=== PATIENT | female | born 1985 | race Caucasian/White ===

== ENCOUNTER → 2016-03-08 | Outpatient (CLI) | payer OTHER ==
--- NOTE | 2016-03-11 08:36 | USB ---
Reason for exam: clinical finding. Indicated problem(s): lump or thickening in the left breast. Physical Findings: Nurse Summary: Patient complains of left breast palpable 2 weeks ago, does not feel now (nurse ts). US Breast LT Left breast ultrasound including all four quadrants, the retroareolar region and axilla demonstrates no cystic or solid lesion seen. Mammogram was deferred as the patient's status was unknown. No solid or cystic lesion is seen with particular attention to the patients upper inner quadrant palpable site. These results were verbally communicated with the patient and result sheet given to the patient on 03/08/16. ASSESSMENT: Negative, BI-RAD 1 RECOMMENDATION: Routine screening mammogram of both breasts at age 42. (Unless clinical indication to start sooner). Manage on a clinical basis with regard to any suspicious palpable areas.
== END | disposition home or self-care (01) ==
LOC: RADMAMWWP 13:34
PROVIDERS: ATTEND Internal Medicine
DX: N63 Unspecified lump in breast (principal)

== ENCOUNTER → 2016-05-07 | Outpatient (CLI) | payer OTHER ==
[2016-05-07 13:15] LABS: CH 30.7; CHCM 33.4; HCT 39.7 % (34.0-46.0); HDW 2.45; HGB 13.1 gm/dL (11.4-16.0); MCH 30.5 pg (25.0-35.0); MCHC 33.1 g/dL (31.0-37.0); MCV 92.3 fL (80.0-100.0); Mean Platelet Volume 7.7; WBC 6.1 k/uL (3.8-10.6)
[2016-05-07 13:21] LABS: Glucose 76 mg/dL (74-99); Non-African American GFR(MDRD) >60 (>60 ml/min/1.73 sqM)
--- NOTE | 2016-05-07 13:41 | US ---
EXAMINATION TYPE: US OB <= 14 wk fetus DATE OF EXAM: 05/07/2016 12:46 PM COMPARISON: NONE CLINICAL HISTORY: Z36 Comfirm Dates. EXAM PERFORMED: Transabdominal (TA) GESTATIONAL AGE / DATING Physician Established: not yet established Dates by LMP: (14 weeks/3 days) EDC: 11/02/16 Dates by First Scan: 1st scan today Dates by Current Scan for: (14 weeks/4 days) EDC: 11/01/16 Date of LMP: 01/26/17 Beta HcG (if available): not available TECHNIQUE: Transabdominal (TA) SURVEY IUP: Single PLACENTA: Anterior PREVIA: Low Lying JENNIFER: 10.6 cm CERVICAL LENGTH (transabdominal: norm > 3.0cm): 3.0 cm BIOMETRY PRESENTATION: Variable BPD: 2.5 cm 14 weeks / 3 days HC: 9.5 cm 14 weeks / 2 days AC: 7.9 cm 14 weeks / 2 days FL: 1.3 cm 14 weeks / 0 days ESTIMATED WEIGHT IN GRAMS: 90 grams ESTIMATED WEIGHT IN LBS/OZS: 0 lbs. 3 oz. WEIGHT PERCENTAGE BASED ON ESTABLISHED DATES: 17% HC/AC: 1.2 FL/AC: 17.0 HEART RATE: 170 bpm RHYTHM: Normal Normal IUP IMPRESSION: Viable 14 weeks 4 days with an EDC of 11/01/2016 Low-lying placenta follow-up post 20 weeks could be obtained for further evaluation as clinically war ranted
[2016-05-07 13:53] LABS: Hepatitis B Surface Ag Index 0.08
== END | disposition home or self-care (01) ==
LOC: RADUSWWP 12:18
PROVIDERS: ATTEND Obstetrics & Gynecology
DX: Z36 Encounter for antenatal screening of mother (principal); O44.42 Low lying placenta NOS or without hemorrhage, second trimester; Z3A.14 14 weeks gestation of pregnancy
CPT/HCPCS: 36415; 76805; 82565; 82947; 85027; 86762; 86780; 86850; 86900; 86901; 87340

== ENCOUNTER 2016-07-01 21:55 | Outpatient (CLI) | payer OTHER ==
[2016-07-01 22:59] LABS: Appearance,Urine Cloudy (Clear); Bacteria,Urine Many /hpf; Bilirubin,Urine Negative (Negative); Glucose,Urine (UA) Negative (Negative); Ketones,Urine Negative (Negative); Leukocyte Esterase,Urine Negative (Negative); Mucus,Urine Rare /hpf; Nitrite,Urine Negative (Negative); PH, Urine 7.5 (5.0-8.0); Particle Count 12815; Protein,Urine Negative (Negative); RBC,Urine 1 /hpf (0-5); Specific Gravity,Urine 1.005 (1.001-1.035); Squamous Epithelial Cell,Urine 2 /hpf (0-4); UA Billing (MACRO vs. MICRO) MICRO; Urobilinogen,Urine <2.0 mg/dL (<2.0); WBC,Urine 3 /hpf (0-5)
== END 2016-07-01 23:59 | disposition home or self-care (01) ==
LOC: FBPOP 21:55
PROVIDERS: ATTEND Obstetrics & Gynecology
DX: O26.92 Pregnancy related conditions, unspecified, second trimester (principal); Z3A.22 22 weeks gestation of pregnancy
CPT/HCPCS: 81001; 82731; 99213

== ENCOUNTER → 2016-08-14 | Outpatient (CLI) | payer OTHER ==
[2016-08-14 09:51] LABS: CHCM 32.9; HCT 32.2 % (34.0-46.0); HDW 2.82; HGB 10.9 gm/dL (11.4-16.0); MCH 31.1 pg (25.0-35.0); MCHC 33.9 g/dL (31.0-37.0); MCV 91.6 fL (80.0-100.0); RBC 3.51 m/uL (3.80-5.40); RDW 13.2 % (11.5-15.5); WBC 9.5 k/uL (3.8-10.6)
== END | disposition home or self-care (01) ==
LOC: LABWHC1 08:11
PROVIDERS: ATTEND Obstetrics & Gynecology
DX: Z34.82 Encounter for supervision of other normal pregnancy, second trimester (principal); Z3A.00 Weeks of gestation of pregnancy not specified
CPT/HCPCS: 36415; 82950; 85027

== ENCOUNTER 2016-10-30 06:15 | Inpatient (IN) | payer OTHER ==
[2016-11-07] MEDS ORDERED: METHYLERGONOVINE 0.2 MG/ML 1 ML AMP IM PRN (06:09)
[2016-11-07] MEDS ORDERED: OXYTOCIN 20 UNITS/1000 ML NS 1,000 ML IV SCH ×2 (06:09→12:46)
[2016-11-07] MEDS ORDERED: CARBOPROST TROMETHAMINE 250 MCG/ML 1 ML AMP IM PRN (06:09)
[2016-11-07] MEDS ORDERED: OXYTOCIN 10 UNIT/ML 1 ML VIAL IM PRN (06:09)
[2016-11-07] MEDS ORDERED: LIDOCAINE 1% (PF) 10 MG/ML (30 ML SDV) SQ PRN (06:09)
[2016-11-07] MEDS ORDERED: TERBUTALINE 1 MG/ML VIAL SQ PRN (06:09)
--- NOTE | 2016-11-07 06:15 | P.HPOB ---
History of Present Illness H&P Date: 11/07/16 Chief Complaint: Postdates induction. This patient is a pleasant 30-year-old 4 para 3 female estimated date of confinement 11/02/2016 estimated gestational age 40-5/7 weeks gestation who presents to labor and delivery for requested induction of labor. Patient's care has been uncomplicated. Review of Systems Constitutional: Denies chills, Denies fever Ears, nose, mouth and throat: Denies headache, Denies sore throat Cardiovascular: Denies chest pain, Denies shortness of breath Respiratory: Denies cough Gastrointestinal: Reports heartburn Genitourinary: Reports Menstruation: Reports amenorrhea Musculoskeletal: Denies myalgias Neurological: Denies numbness, Denies weakness Past Medical History Past Medical History: No Reported History History of Any Multi-Drug Resistant Organisms: None Reported Past Surgical History: Adenoidectomy, Tonsillectomy Past Anesthesia/Blood Transfusion Reactions: No Reported Reaction Past Psychological History: No Psychological Hx Reported Smoking Status: Never smoker Past Alcohol Use History: None Reported Past Drug Use History: None Reported Medications and Allergies Home Medications Medication Instructions Recorded Confirmed Type 114/Iron A-G/Folate 1 1 each PO DAILY 07/01/16 11/07/16 History [Prenate Elite Tablet] Allergies Allergy/AdvReac Type Severity Reaction Status Date / Time amoxicillin [From Augmentin] Allergy Rash/Hives Verified 11/07/16 06:09 clavulanic acid Allergy Rash/Hives Verified 11/07/16 06:09 [From Augmentin] Exam - Vital Signs Vital signs: Intake and Output 11/06/16 11/06/16 11/07/16 14:59 22:59 06:59 Other: Weight 97.522 kg Patient Weight 11/07/16 06:59 Weight 97.522 kg - OBG Physical Exam Abdomen: bowel sounds normal, no diffuse tenderness, no bruit present, no guarding noted, no hepatomegaly, no splenomegaly, no mass Vagina: normal moisture, no discharge Cervix: Cervix in the office is 2 cm dilated and uneffaced. Uterus: enlarged (Fundal height is 40 cm.) Results blood work shows she is AB+, rubella immune, RPR nonreactive, hepatitis B negative, ultrasounds have been normal, group B strep was negative, Glucola was normal. Assessment and Plan (1) Post-dates Narrative/Plan: This is a pleasant 30-year-old 4 para 3 female who is presenting for requested induction of labor. Plan is induction of labor and anticipate vaginal delivery. Status: Acute
[2016-11-07] MEDS: LACTATED RINGERS 1,000 ML IV SCH ×2 (06:21→10:11)
[2016-11-07 06:26] LABS: Basophils % (A) 0 %; CH 28.6; CHCM 32.6; Eosinophils # (A) 0.1 k/uL (0-0.7); Eosinophils % (A) 1 %; HCT 34.1 % (34.0-46.0); HDW 3.21; HGB 10.7 gm/dL (11.4-16.0); Hypochromasia Slight; Luc # (Auto) 0.16; Luc % (Auto) 2; Lymphocytes # (A) 1.4 k/uL (1.0-4.8); Lymphocytes % (A) 20 %; MCH 27.5 pg (25.0-35.0); MCHC 31.2 g/dL (31.0-37.0); Mean Platelet Volume 8.4; Monocytes # (A) 0.6 k/uL (0-1.0); Monocytes % (A) 8 %; Neutrophils # (A) 4.9 k/uL (1.3-7.7); Neutrophils % (A) 69 %; RBC 3.88 m/uL (3.80-5.40); WBC 7.2 k/uL (3.8-10.6); WBC (Perox) 8.15
[2016-11-07 06:37] VITALS: BMI 35.7
[2016-11-07] MEDS ORDERED: BUPIVACAINE (PF) 0.25% 30 ML VIAL ONE (09:50)
[2016-11-07] MEDS ORDERED: fentaNYL (PF) 50 MCG/ML 5 ML AMP ONE (09:50)
[2016-11-07] MEDS ORDERED: SODIUM CHLORIDE 0.9% 100 ML BAG ONE (09:50)
[2016-11-07] MEDS ORDERED: BUPIVACAINE (PF) 0.25% 25 ML, fentaNYL (PF) 200 MCG in SODIUM CHLORIDE 0.9% 71 ML EPIDURAL ONE (10:05)
--- NOTE | 2016-11-07 12:30 | P.PROBDLV ---
Vaginal Delivery Note - . Vaginal Delivery Note: Normal vaginal delivery viable male infant Apgars 8 and 9 delivery time is 1215 hrs. Please see dictated H&P for intimate details of this patient's admission. In brief summary this is a pleasant 30-year-old 4 para 3 female 40-5/7 weeks gestation who was admitted to labor and delivery for postdates induction. On admission patient is 3 cm dilated has artificial rupture membranes for clear fluid. Labor is induced with Pitocin per protocol. Patient does progress and requested an epidural for pain control. Patient thereafter quickly goes to complete and pushes the head to the perineum. Posterior perineum is supported and we have controlled delivery of the infant's head over the intact perineum. Mouth and nares are bulb suctioned and there is no evidence of a nuchal cord. With gentle downward traction, we then have delivery the anterior and posterior shoulder and rest this infant's body. This is a vigorous viable male Apgars are 8 and 9 delivery time was 1215 hours. After delivery of the infant the umbilical cord is doubly clamped and cut the infant is late on the mother's abdomen. The placenta is spontaneously delivered intact. Inspection of the perineum shows a superficial first-degree laceration that is repaired with a [id number] stitch of 3-0 Vicryl and excellent reapproximation is noted. All counts are correct 3. There are no complications. Infant and mother are stable in delivery room.
[2016-11-07] MEDS ORDERED: SIMETHICONE 80 MG CHEWABLE PO PRN (12:46)
[2016-11-07] MEDS ORDERED: Acetaminophen-Codeine 300-30mg TAB PO PRN ×2 (12:46)
[2016-11-07] MEDS ORDERED: BISACODYL 10 MG SUPP RECTAL PRN (12:46)
[2016-11-07] MEDS ORDERED: LANOLIN CREAM 5 GM TUBE TOPICAL PRN (12:46)
[2016-11-07] MEDS ORDERED: ZOLPIDEM 5 MG TAB PO PRN (12:46)
[2016-11-07] MEDS ORDERED: BENZOCAINE/MENTHOL SPRAY 1 GM/SPRAY AEROSOL TOPICAL PRN (12:46)
[2016-11-07] MEDS ORDERED: diphenhydrAMINE 50 MG/ML 1 ML VIAL IVP PRN (12:46)
[2016-11-07] MEDS ORDERED: ACETAMINOPHEN TAB 325 MG TAB PO PRN (12:46)
[2016-11-07] MEDS ORDERED: WITCH HAZEL 1 EACH MED..PAD TOPICAL PRN (12:46)
[2016-11-07] MEDS ORDERED: diphenhydrAMINE 25 MG CAP PO PRN (12:46)
[2016-11-07] MEDS ORDERED: HYDROCORTISONE 2.5% RECTAL CREAM 30 GM TUBE RECTAL PRN (12:46)
[2016-11-07] MEDS: IBUPROFEN 600 MG TAB PO PRN (20:07)
[2016-11-07] MEDS: SENNOSIDES-DOCUSATE SODIUM 1 EACH TAB PO SCH ×2 (20:34→20:59)
[2016-11-08] MEDS: IBUPROFEN 600 MG TAB PO PRN ×3 (04:19→16:47)
--- NOTE | 2016-11-08 06:00 | P.PNOBGVD ---
Subjective - Subjective Patient reports: Reports appetite normal, Reports voiding normally, Reports pain well controlled, Reports ambulating normally : doing well Objective - Latest Vital Signs Latest vital signs: Vital Signs Temp Pulse Resp BP Pulse Ox 11/08/16 04:00 98.2 F 80 18 108/68 100 11/08/16 00:00 98.2 F 70 18 96/50 100 11/07/16 20:00 97.5 F L 84 18 105/64 100 11/07/16 16:15 97.9 F 68 16 107/64 11/07/16 14:47 98.4 F 84 16 105/57 11/07/16 14:15 80 18 109/57 11/07/16 13:47 83 16 116/67 11/07/16 13:32 79 18 108/64 11/07/16 13:16 101 H 18 119/62 11/07/16 13:02 76 18 106/53 11/07/16 12:47 82 16 111/54 11/07/16 06:31 96.9 F L 98 16 106/58 Intake and Output 11/07/16 11/07/16 11/08/16 14:59 22:59 06:59 Intake Total 100 Balance 100 Intake: Oral 100 Other: # Voids 1 - Exam Lungs: bilateral: normal Chest: Normal S1, Normal S2 Extremities: Present: normal Abdomen: Present: normal appearance, soft Uterus: Present: normal, firm - Labs Labs: Abnormal Lab Results - Last 24 Hours (Table) 11/07/16 Range/Units 06:10 Hgb 10.7 L (11.4-16.0) gm/dL Assessment and Plan (1) Post-dates Narrative/Plan: day #1. Patient is resting without complaints and considering going home today. Vital signs are stable and she is afebrile. Uterus is firm nontender she's having normal lochia. My impression is a normal course. Patient was stable to go home if she desires today otherwise tomorrow. Current Visit: Yes Status: Acute Code(s): O48.0 - POST-TERM SNOMED Code(s): 62206781
--- NOTE | 2016-11-08 06:01 | P.DS ---
Providers Date of admission: 11/07/16 06:03 Expected date of discharge: 11/08/16 Attending physician: Jose Clifford Primary care physician: Stated None - Discharge Diagnosis(es) (1) Post-dates Current Visit: Yes Status: Acute Hospital Course: Please see dictated H&P for intimate details of this patient's admission. Brief summary this pleasant 30-year-old 4 para 3 female 40-5/7 weeks gestation admitted to labor and delivery for postdates induction of labor. Patient quickly goes on have vaginal delivery viable male . Please see dictated delivery note. day 1 patient without complaints wishes to go home. Patient's felt be stable for discharge home follow up with me in 6 weeks. Procedures: Induction of labor normal vaginal delivery. Patient Condition at Discharge: Good Plan - Discharge Summary New Discharge Prescriptions: New Acetaminophen-Codeine 300-30mg [Tylenol w/codeine #3] 1 - 2 each PO Q4HR PRN #30 tab PRN Reason: Mild Pain exceeding Tylenol Ibuprofen [Motrin] 600 mg PO Q6HR PRN #40 tab PRN Reason: Mild Pain Or Fever >= 100.5 No Action 114/Iron A-G/Folate 1 [Prenate Elite Tablet] 1 each PO DAILY Discharge Medication List 114/Iron A-G/Folate 1 [Prenate Elite Tablet] 1 each PO DAILY 07/01/16 [ History] Acetaminophen-Codeine 300-30mg [Tylenol w/codeine #3] 1 - 2 each PO Q4HR PRN # 30 tab 11/08/16 [Rx] Ibuprofen [Motrin] 600 mg PO Q6HR PRN #40 tab 11/08/16 [Rx] Follow up Appointment(s)/Referral(s): Jose Clifford MD [STAFF PHYSICIAN] - 6 Weeks Patient Instructions/Handouts: Vaginal Delivery (DC) Activity/Diet/Wound Care/Special Instructions: No intercourse or anything per vagina for 6 weeks. Please call if any fever, chills, excessive vaginal bleeding, and/or abdominal pain. Discharge Disposition: HOME SELF-CARE
[2016-11-08] MEDS: SENNOSIDES-DOCUSATE SODIUM 1 EACH TAB PO SCH ×2 (08:06→20:41)
[2016-11-09] MEDS: IBUPROFEN 600 MG TAB PO PRN (03:51)
--- NOTE | 2016-11-09 07:16 | P.PNOBGVD ---
Subjective - Subjective Patient reports: Reports appetite normal, Reports voiding normally, Reports pain well controlled, Reports ambulating normally : doing well Objective - Latest Vital Signs Latest vital signs: Vital Signs Temp Pulse Resp BP 11/09/16 00:00 98.5 F 71 14 122/70 11/08/16 16:00 98.6 F 79 18 102/61 11/08/16 12:00 98.6 F 78 18 106/69 11/08/16 08:00 98.1 F 83 16 101/61 - Exam Lungs: bilateral: normal Chest: Normal S1, Normal S2 Extremities: Present: normal Abdomen: Present: normal appearance, soft Uterus: Present: normal, firm Assessment and Plan (1) Post-dates Narrative/Plan: day #2. Patient is resting without complaints. Her baby had some elevated bilirubin just today and therefore she decided to stay. Patient's vital signs are stable and she is afebrile. Plan is to continue routine care discharge home today. Current Visit: Yes Status: Acute Code(s): O48.0 - POST-TERM SNOMED Code(s): 02279991
[2016-11-09] MEDS: SENNOSIDES-DOCUSATE SODIUM 1 EACH TAB PO SCH (07:46)
[2016-11-09 08:40] VITALS: RESP 16; TEMP 98.8
[2016-11-09 15:47] VITALS: BP 125/72; PULSE 90
== END 2016-11-09 19:00 | disposition home or self-care (01) | DRG 775 ==
LOC: 4FBP 11-07 06:03
PROVIDERS: ADMIT Obstetrics & Gynecology; ATTEND Obstetrics & Gynecology
PROC: 10E0XZZ Delivery of Products of Conception, External Approach (ICD-10-PCS; principal; 2016-11-07)
PROC: 0HQ9XZZ Repair Perineum Skin, External Approach (ICD-10-PCS; 2016-11-07)
PROC: 3E0S3NZ Introduction of Analgesics, Hypnotics, Sedatives into Epidural Space, Percutaneous Approach (ICD-10-PCS; 2016-11-07)
PROC: 00HU33Z Insertion of Infusion Device into Spinal Canal, Percutaneous Approach (ICD-10-PCS; 2016-11-07)
PROC: 3E033VJ Introduction of Other Hormone into Peripheral Vein, Percutaneous Approach (ICD-10-PCS; 2016-11-07)
PROC: 10907ZC Drainage of Amniotic Fluid, Therapeutic from Products of Conception, Via Natural or Artificial Opening (ICD-10-PCS; 2016-11-07)
DX: O48.0 Post-term pregnancy (principal); O70.0 First degree perineal laceration during delivery; Z3A.40 40 weeks gestation of pregnancy; Z37.0 Single live birth; Z88.1 Allergy status to other antibiotic agents; Z88.8 Allergy status to other drugs, medicaments and biological substances
CPT/HCPCS: 85025; 88307

== ENCOUNTER 2016-11-05 | Outpatient (CLI) | payer OTHER ==
--- NOTE | 2016-11-08 08:48 | P.MSEPDOC ---
Presenting Problems - Arrival Data Date of Arrival on Unit: 11/05/16 Time of Arrival on Unit: 00:13 Mode of Transport: Ambulatory - Complaint OB-Reason for Admission/Chief Complaint: Possible Onset of Labor Comment: irregular cntrx since 1800, getting more intense but not more regular. in office today for NST. scheduled for induction Medical History - Information : 4 Para: 3 Term: 3 : 0 Abortions: Spontaneous or Elective: 0 Number of Living Children: 3 - Gestational Age Gestational Age by JAG (wks/days): 40 Weeks and 3 Days Review of Systems - Review of Systems Constitutional: No problems Breast: No problems ENT: No problems Cardiovascular: No problems Respiratory: No problems Gastrointestinal: No problems Genitourinary: No problems Musculoskeletal: No problems Neurological: No problems Skin: No problems Vital Signs - Temperature Temperature: 97.5 F Temperature Source: Temporal Artery Scan - Pulse Right Pulse Rate: 88 Pulse Assessment Method: Pulse Oximetry - Respirations Respiratory Rate: 16 O2 Sat by Pulse Oximetry: 99 - Blood Pressure Right Arm Blood Pressure: 104/62 Blood Pressure Mean: 76 Blood Pressure Source: Automatic Cuff Medical Screen Scoring (Pre) - Cervical Exam Dilation: 1-3 cm = 1 - Uterine Contractions Frequency: > or = 36 weeks =2 Duration: > 40 seconds = 2 - Assessment Baseline FHR: 130 Heart Rate - NICHD Category: Category I (Normal) = 0 NST: Reactive Position: N/A Station: N/A - Total Score Total Score (Pre): 5 - Level of Risk Level of Risk: Low (0-5) Medical Screen Scoring (Post) - Cervical Exam Dilation: 1-3 cm = 1 Effacement: Exam Deferred - Uterine Contractions Frequency: > or = 36 weeks =2 Duration: > 40 seconds = 2 Intensity: N/A - Maternal Vital Signs Maternal Temperature: N/A Maternal Blood Pressure: N/A Signs of Preeclampsia: N/A Maternal Respirations: N/A - Maternal Trauma Maternal Trauma: N/A - Assessment Heart Rate: 135 Heart Rate - NICHD Category: Category I (Normal) = 0 NST: Reactive Station: N/A - Total Score Total Score (Post): 5 - Post Treatment Level of Risk Post Treatment Level of Risk: Low (0-5) Physician Notification (Post) - Physician Notified Physician Notified Date: 11/05/16 Physician Notified Time: 01:40 Physician/Practitioner Notified:: Dr Perdomo - Notification Comment Comment: reported on pts c/o irreg cntrx and hx of quick labors; reactive fhts, cntrx pattern, vag exam on admission and at 1 hr. orders to d/c home with instructions, or pt may stay another hour and be rechecked. if fhts are reactive and reassuring and no cervical change after another hour, pt may be d/c 'd- no need to call for further orders. Disposition - Disposition OB Disposition: Discharge to home Discharge Date: 11/05/16 Discharge Time: 02:35 I agree with the RN Medical Screening Exam: Yes Risk & Benefit of care provided described in d/c instruction: Yes Diagnosis: FALSE LABOR AT OR AFTER 37 COMPLETED WEEKS OF GESTATION
== END 2016-11-05 02:35 | disposition home or self-care (01) ==
CPT/HCPCS: 59025; G0463; 99213

== ENCOUNTER → 2017-04-11 | Outpatient (CLI) | payer OTHER ==
--- NOTE | 2017-04-11 10:50 | US ---
EXAMINATION TYPE: US abdomen complete DATE OF EXAM: 04/11/2017 COMPARISON: NONE CLINICAL HISTORY: R10.11 RUQ PAIN. Pain, NPO, no surgeries EXAM MEASUREMENTS: Liver Length: 17.1 cm Gallbladder Wall: 0.2 cm CBD: 0.4 cm CHD: 0.3 Spleen: 10.4 cm Right Kidney: 10.3 x 4.7 x 3.9 cm Left Kidney: 10.2 x 4.2 x 4.3 cm Pancreas: Tail obscured by overlying bowel gas Liver: Slightly enlarged at 17 cm. Normal less than 15.5 cm. Gallbladder: wnl, fold seen Evidence for sonographic Ortiz's sign: neg CBD: Limited visualization due to overlying bowel gas CHD: wnl Spleen: wnl Right Kidney: wnl Left Kidney: Suboptimal visualization due to bowel gas. Portions seen appear wnl Upper IVC: wnl Abd Aorta: Limited visualization due to overlying bowel gas, portions seen appear wnl IMPRESSION: 1. There is some limitation due to bowel gas. 2. Mild hepatomegaly is present.
== END | disposition home or self-care (01) ==
LOC: RADUSWWP 09:28
PROVIDERS: ATTEND Internal Medicine
DX: R16.0 Hepatomegaly, not elsewhere classified (principal)
CPT/HCPCS: 76700

== ENCOUNTER → 2017-04-21 | Outpatient (CLI) | payer OTHER ==
--- NOTE | 2017-04-21 15:58 | NM ---
Nuclear medicine hepatobiliary scan. HISTORY: Pain. DOSAGE: The patient received 8 ounces of ensure plus and 5.2 mCi of Technetium 99m Choletec. FINDINGS: There is normal hepatic extraction. The gallbladder is seen by 10 minutes. There is delay ed biliary to bowel clearance not seen at 60 minutes. Ejection fraction is 90%. IMPRESSION: 1. Ejection fraction is 90%. This can occasionally be associated with hyperdynamic gallbladder. Corre late clinically.
== END | disposition home or self-care (01) ==
LOC: RADNMMAIN 12:44
PROVIDERS: ATTEND Internal Medicine
DX: R10.11 Right upper quadrant pain (principal)
CPT/HCPCS: 78226; A9537

== ENCOUNTER → 2017-04-30 | Outpatient (CLI) | payer OTHER ==
--- NOTE | 2017-04-30 15:33 | CT ---
EXAMINATION TYPE: CT abdomen pelvis w con DATE OF EXAM: 04/30/2017 HISTORY: Abdominal pain not further specified on order. Left-sided pain since January per patient. CT DLP: 1522mGycm Automated Exposure Control for Dose Reduction was Utilized. CONTRAST: CT scan of the abdomen and pelvis is performed with IV Contrast, patient injected with 100 ml mL of I sovue 300. COMPARISON: None. FINDINGS: LUNG BASES: No significant abnormality is appreciated. LIVER/GB: No significant abnormality is appreciated. PANCREAS: No significant abnormality is seen. SPLEEN: There is 1.0 cm splenule anterolateral to the upper spleen axial image 13. ADRENALS: No significant abnormality is seen. KIDNEYS: No significant abnormality is seen. BOWEL: Normal-appearing appendix is seen ascending centrally and medially from the cecum seen best co srinivas image 28. Oral contrast reaches cecum. There is no suspicious small or large bowel dilatation i dentified. UTERUS/ADNEXA: Anteverted uterus is seen. Prominent draining left-sided gonadal veins are identified. LYMPH NODES: No greater than 1cm abdominal or pelvic lymph nodes are appreciated. OSSEOUS STRUCTURES: No significant abnormality is seen. OTHER: There is small fat-containing umbilical hernia. IMPRESSION: Prominent left-sided draining gonadal veins raises concern for pelvic congestion syndrome given patient's history of left-sided pain otherwise no suspicious acute finding is seen to account for patient's symptoms.
== END | disposition home or self-care (01) ==
LOC: RADCTMAIN 12:04
PROVIDERS: ATTEND Surgery
DX: R10.84 Generalized abdominal pain (principal)
CPT/HCPCS: 74177; Q9967

== ENCOUNTER → 2017-06-17 | Outpatient (CLI) | payer OTHER ==
[2017-06-17 19:38] LABS: Gliadin AB IgA, Unit 1.4 U/mL
== END | disposition home or self-care (01) ==
LOC: LABWHC1 11:41
PROVIDERS: ATTEND Internal Medicine
DX: K90.41 Non-celiac gluten sensitivity (principal)
CPT/HCPCS: 36415; 83516

== ENCOUNTER 2017-07-08 16:37 | Emergency (ER) | payer OTHER ==
[2017-07-08 16:50] VITALS: BP 126/67; PULSE 91; RESP 20; TEMP 98.6
[2017-07-08] MEDS ORDERED: RABIES IMMUNE GLOB 150 UNIT/ML 10 ML VIAL IM ONE (17:51)
[2017-07-08] MEDS ORDERED: RABIES VACCINE (PCEC) 2.5 UNIT KIT IM ONE (18:15)
--- NOTE | 2017-07-08 18:26 | ED ---
General Adult HPI - General Chief complaint: Recheck/Abnormal Lab/Rx Stated complaint: Exposed to bats Time Seen by Provider: 07/08/17 17:13 Source: patient, RN notes reviewed Mode of arrival: ambulatory Limitations: no limitations - History of Present Illness Initial comments: Patient 31-year-old female who presents emergency room today with chief complaint of possible bat exposure. Patient does admit that her came home and followed bat in the house. States that he was able to remove it. States the following day from the back. States that children were not in the house at the time. States he woke up the following morning after sleeping the last night noticed that there were some back. States they have had about miles once before. They did talk to the rn spine advised coming to the emergency room for rabies prophylaxis. Mother denies any unexplained aleman. States no evidence for any bites. Does admit to some cough congestion. Patient denies any recent fever, chills, shortness of breath, chest pain, back pain, abdominal pain, nausea or vomiting, numbness or tingling, dysuria or hematuria, constipation or diarrhea, headaches or visual changes, or any other complaints. - Related Data Home Medications Medication Instructions Recorded Confirmed Citalopram Hydrobromide [CeleXA] 20 mg PO DAILY 07/08/17 07/08/17 Allergies Allergy/AdvReac Type Severity Reaction Status Date / Time amoxicillin [From Augmentin] Allergy Rash/Hives Verified 07/08/17 17:23 clavulanic acid Allergy Rash/Hives Verified 07/08/17 17:23 [From Augmentin] Review of Systems ROS Statement: Those systems with pertinent positive or pertinent negative responses have been documented in the HPI. ROS Other: All systems not noted in ROS Statement are negative. Past Medical History Past Medical History: No Reported History History of Any Multi-Drug Resistant Organisms: None Reported Past Surgical History: Adenoidectomy, Tonsillectomy Additional Past Surgical History / Comment(s): Tubes in ears as a child Past Anesthesia/Blood Transfusion Reactions: No Reported Reaction Past Psychological History: Anxiety Smoking Status: Never smoker Past Alcohol Use History: None Reported Past Drug Use History: None Reported - Past Family History Sister(s) Additional Family Medical History / Comment(s): anxiety Mother Additional Family Medical History / Comment(s): Brain Anerysms General Exam - General Exam Comments Initial Comments: General: The patient is awake and alert, in no distress, and does not appear acutely ill. Eye: Pupils are equal, round and reactive to light, extra-ocular movements are intact. No nystagmus. There is normal conjunctiva bilaterally. No signs of icterus. Ears, nose, mouth and throat: There are moist mucous membranes and no oral lesions. Neck: The neck is supple, there is no tenderness or JVD. Cardiovascular: There is a regular rate and rhythm. No murmur, rub or gallop is appreciated. Respiratory: Lungs are clear to auscultation, respirations are non-labored, breath sounds are equal. No wheezes, stridor, rales, or rhonchi. Musculoskeletal: Normal ROM, no tenderness. Strength 5/5. Sensation intact. Neurological: A&O x 3. CN II-XII intact, There are no obvious motor or sensory deficits. Coordination appears grossly intact. Speech is normal. Skin: Skin is warm and dry and no rashes or lesions are noted. Psychiatric: Cooperative, appropriate mood & affect, normal judgment. Limitations: no limitations Course Vital Signs 07/08/17 16:47 Temperature 98.6 F Pulse Rate 91 Respiratory 20 Rate Blood Pressure 126/67 O2 Sat by Pulse 97 Oximetry Medical Decision Making - Medical Decision Making Options were discussed with mother about rabies prophylaxis here in emergency room. No known bite or exposure. At this time shows like to be treated. Rabies immunoglobulin and rabies vaccine have been ordered given here in the emergency room by nursing staff. Prescription to continue Rabbies Vaccine will be given. Disposition Clinical Impression: Exposure to bat without known bite Disposition: HOME SELF-CARE Condition: Good Instructions: Rabies (ED) Additional Instructions: Please continue to follow-up for rabies vaccine as prescribed. Please return to emergency room for any concerns. Is patient prescribed a controlled substance at d/c from ED?: No Referrals: Oly Cuellar MD [Primary Care Provider] - 1-2 days Time of Disposition: 18:46
== END 2017-07-08 19:32 | disposition home or self-care (01) ==
LOC: EC 16:37
DX: Z20.3 Contact with and (suspected) exposure to rabies (principal); R05 Cough; R09.89 Other specified symptoms and signs involving the circulatory and respiratory systems; F41.9 Anxiety disorder, unspecified; Z79.899 Other long term (current) drug therapy; Z88.0 Allergy status to penicillin; Z23 Encounter for immunization; Z90.89 Acquired absence of other organs
CPT/HCPCS: 90375; 90471; 90675; 96372; 99283

== ENCOUNTER 2018-02-18 13:16 | Emergency (ER) | payer OTHER ==
[2018-02-18 13:30] VITALS: RESP 18
[2018-02-18] MEDS ORDERED: SODIUM CHLORIDE 0.9% 1,000 ML IV STA (14:21)
--- NOTE | 2018-02-18 15:06 | ED ---
Abdominal Pain HPI - General Chief Complaint: Abdominal Pain Stated Complaint: abd pain Time Seen by Provider: 02/18/18 14:20 Source: patient, RN notes reviewed Mode of arrival: ambulatory Limitations: no limitations - History of Present Illness Initial Comments: 32-year-old female presents emergency Department chief complaint of abdominal pain, left shoulder chest pain. Patient states that she's been having these issues are off for over a year states that she had gallbladder rule out including HIDA scan, MRI, ultrasound. They felt that she may have splenic flexure referred pain. Patient states that she also saw a surgeon and GI. Patient states his pain seems to be going back and worsening. She states it is worse when she eats. Patient states her ultrasound no shortening of into stones. Patient reports no dysuria no hematuria no chance . Denies any change in bowel habits no melena or hematochezia. Patient denies any anterior chest pain, prior cardiac disease. - Related Data Home Medications Medication Instructions Recorded Confirmed Citalopram Hydrobromide [CeleXA] 40 mg PO HS 02/18/18 02/18/18 Magnesium 200 mg PO HS 02/18/18 02/18/18 Allergies Allergy/AdvReac Type Severity Reaction Status Date / Time amoxicillin [From Augmentin] Allergy Rash/Hives Verified 02/18/18 14:20 clavulanic acid Allergy Rash/Hives Verified 02/18/18 14:20 [From Augmentin] Review of Systems ROS Statement: Those systems with pertinent positive or pertinent negative responses have been documented in the HPI. ROS Other: All systems not noted in ROS Statement are negative. Past Medical History Past Medical History: No Reported History History of Any Multi-Drug Resistant Organisms: None Reported Past Surgical History: Adenoidectomy, Tonsillectomy Additional Past Surgical History / Comment(s): Tubes in ears as a child Past Anesthesia/Blood Transfusion Reactions: No Reported Reaction Past Psychological History: Anxiety Smoking Status: Never smoker Past Alcohol Use History: None Reported Past Drug Use History: None Reported - Past Family History Sister(s) Additional Family Medical History / Comment(s): anxiety Mother Additional Family Medical History / Comment(s): Brain Anerysms General Exam Limitations: no limitations General appearance: alert, in no apparent distress Head exam: Present: atraumatic, normocephalic, normal inspection ENT exam: Present: normal exam, normal oropharynx, mucous membranes moist, TM's normal bilaterally Neck exam: Present: normal inspection. Absent: tenderness, meningismus, lymphadenopathy Respiratory exam: Present: normal lung sounds bilaterally. Absent: respiratory distress, wheezes, rales, rhonchi, stridor Cardiovascular Exam: Present: regular rate, normal rhythm, normal heart sounds. Absent: systolic murmur, diastolic murmur, rubs, gallop, clicks GI/Abdominal exam: Present: soft, tenderness (Right upper quadrant), normal bowel sounds. Absent: distended, guarding, rebound, rigid Back exam: Absent: CVA tenderness (R), CVA tenderness (L) Skin exam: Present: warm, dry, intact, normal color. Absent: rash Course Vital Signs 02/18/18 13:26 Temperature 98.1 F Pulse Rate 70 Respiratory 18 Rate Blood Pressure 113/75 O2 Sat by Pulse 99 Oximetry Medical Decision Making - Medical Decision Making 32-year-old female presented for abdominal shoulder pain. Patient has had extensive workup in the past for this. Patient had laboratory, CT of the chest secondary to elevated d-dimer, negative for PE. CT of abdomen and pelvis obtained no acute abnormality. Patient may have referred pain and has seen GI for this in the past. Patient will follow-up with Dr. Mcfarlane return parameters were discussed. Patient does have 3+ ketonuria though this is related to her ketogenic diet. Patient was hydrated. Patient agrees to follow-up return for any worsening symptoms. - Lab Data Result diagrams: 02/18/18 15:19 02/18/18 15:19 Lab Results 02/18/18 02/18/18 02/18/18 Range/Units 15:19 15:19 15:19 WBC 3.5 L (3.8-10.6) k/uL RBC 4.74 (3.80-5.40) m/uL Hgb 13.8 (11.4-16.0) gm/dL Hct 43.3 (34.0-46.0) % MCV 91.2 (80.0-100.0) fL MCH 29.1 (25.0-35.0) pg MCHC 31.9 (31.0-37.0) g/dL RDW 13.7 (11.5-15.5) % Plt Count 170 (150-450) k/uL Neutrophils % 63 % Lymphocytes % 24 % Monocytes % 7 % Eosinophils % 4 % Basophils % 1 % Neutrophils # 2.2 (1.3-7.7) k/uL Lymphocytes # 0.8 L (1.0-4.8) k/uL Monocytes # 0.2 (0-1.0) k/uL Eosinophils # 0.1 (0-0.7) k/uL Basophils # 0.0 (0-0.2) k/uL D-Dimer (<0.60) mg/L FEU Sodium 139 (137-145) mmol/L Potassium 4.5 (3.5-5.1) mmol/L Chloride 105 (98-107) mmol/L Carbon Dioxide 21 L (22-30) mmol/L Anion Gap 13 mmol/L BUN 9 (7-17) mg/dL Creatinine 0.48 L (0.52-1.04) mg/dL Est GFR (CKD-EPI)AfAm >90 (>60 ml/min/1.73 sqM) Est GFR (CKD-EPI)NonAf >90 (>60 ml/min/1.73 sqM) Glucose 71 L (74-99) mg/dL Calcium 8.6 (8.4-10.2) mg/dL Total Bilirubin 0.5 (0.2-1.3) mg/dL AST 23 (14-36) U/L ALT 31 (9-52) U/L Alkaline Phosphatase 48 (38-126) U/L Troponin I (0.000-0.034) ng/mL Total Protein 6.5 (6.3-8.2) g/dL Albumin 4.2 (3.5-5.0) g/dL Amylase <30 L (30-110) U/L Lipase 100 (23-300) U/L Urine Color Light Yellow Urine Appearance Clear (Clear) Urine pH 5.5 (5.0-8.0) Ur Specific [place] 1.005 (1.001-1.035) Urine Protein Negative (Negative) Urine Glucose (UA) Negative (Negative) Urine Ketones 3+ H (Negative) Urine Blood Negative (Negative) Urine Nitrite Negative (Negative) Urine Bilirubin Negative (Negative) Urine Urobilinogen <2.0 (<2.0) mg/dL Ur Leukocyte Esterase Negative (Negative) Urine HCG, Qual (Not Detectd) 02/18/18 02/18/18 02/18/18 Range/Units 15:19 15:19 15:19 WBC (3.8-10.6) k/uL RBC (3.80-5.40) m/uL Hgb (11.4-16.0) gm/dL Hct (34.0-46.0) % MCV (80.0-100.0) fL MCH (25.0-35.0) pg MCHC (31.0-37.0) g/dL RDW (11.5-15.5) % Plt Count (150-450) k/uL Neutrophils % % Lymphocytes % % Monocytes % % Eosinophils % % Basophils % % Neutrophils # (1.3-7.7) k/uL Lymphocytes # (1.0-4.8) k/uL Monocytes # (0-1.0) k/uL Eosinophils # (0-0.7) k/uL Basophils # (0-0.2) k/uL D-Dimer 0.76 H (<0.60) mg/L FEU Sodium (137-145) mmol/L Potassium (3.5-5.1) mmol/L Chloride (98-107) mmol/L Carbon Dioxide (22-30) mmol/L Anion Gap mmol/L BUN (7-17) mg/dL Creatinine (0.52-1.04) mg/dL Est GFR (CKD-EPI)AfAm (>60 ml/min/1.73 sqM) Est GFR (CKD-EPI)NonAf (>60 ml/min/1.73 sqM) Glucose (74-99) mg/dL Calcium (8.4-10.2) mg/dL Total Bilirubin (0.2-1.3) mg/dL AST (14-36) U/L ALT (9-52) U/L Alkaline Phosphatase (38-126) U/L Troponin I <0.012 (0.000-0.034) ng/mL Total Protein (6.3-8.2) g/dL Albumin (3.5-5.0) g/dL Amylase (30-110) U/L Lipase (23-300) U/L Urine Color Urine Appearance (Clear) Urine pH (5.0-8.0) Ur Specific [place] (1.001-1.035) Urine Protein (Negative) Urine Glucose (UA) (Negative) Urine Ketones (Negative) Urine Blood (Negative) Urine Nitrite (Negative) Urine Bilirubin (Negative) Urine Urobilinogen (<2.0) mg/dL Ur Leukocyte Esterase (Negative) Urine HCG, Qual Not Detected (Not Detectd) Disposition Clinical Impression: Abdominal pain, Referred pain Disposition: HOME SELF-CARE Condition: Stable Instructions: Abdominal Pain (ED) Additional Instructions: Please return to the Emergency Department if symptoms worsen or any other concerns. Is patient prescribed a controlled substance at d/c from ED?: No Referrals: Oly Cuellar MD [Primary Care Provider] - 1-2 days Dwayne Tirado MD [STAFF PHYSICIAN] - 1-2 days Time of Disposition: 17:52
[2018-02-18 15:42] LABS: Basophils % (A) 1 %; Eosinophils # (A) 0.1 k/uL (0-0.7); Eosinophils % (A) 4 %; HCT 43.3 % (34.0-46.0); HGB 13.8 gm/dL (11.4-16.0); Lymphocytes # (A) 0.8 k/uL (1.0-4.8); Lymphocytes % (A) 24 %; MCH 29.1 pg (25.0-35.0); MCHC 31.9 g/dL (31.0-37.0); MCV 91.2 fL (80.0-100.0); Monocytes # (A) 0.2 k/uL (0-1.0); Monocytes % (A) 7 %; Neutrophils # (A) 2.2 k/uL (1.3-7.7); Neutrophils % (A) 63 %; Platelet Count 170 k/uL (150-450); RBC 4.74 m/uL (3.80-5.40); RDW 13.7 % (11.5-15.5); WBC 3.5 k/uL (3.8-10.6)
[2018-02-18 15:43] LABS: Appearance,Urine Clear (Clear); Bilirubin,Urine Negative (Negative); Blood,Urine Negative (Negative); Color,Urine Light Yellow; Glucose,Urine (UA) Negative (Negative); Ketones,Urine 3+ (Negative); Leukocyte Esterase,Urine Negative (Negative); Nitrite,Urine Negative (Negative); PH, Urine 5.5 (5.0-8.0); Protein,Urine Negative (Negative); Specific Gravity,Urine 1.005 (1.001-1.035); Urobilinogen,Urine <2.0 mg/dL (<2.0)
[2018-02-18 15:59] LABS: ALT 31 U/L (9-52); AST 23 U/L (14-36); Albumin 4.2 g/dL (3.5-5.0); Alkaline Phosphatase 48 U/L (38-126); Amylase <30 U/L (30-110); Anion Gap 13 mmol/L; Blood Urea Nitrogen 9 mg/dL (7-17); Calcium 8.6 mg/dL (8.4-10.2); Carbon Dioxide 21 mmol/L (22-30); Chloride 105 mmol/L (98-107); Glucose 71 mg/dL (74-99); Lipase 100 U/L (23-300); Potassium 4.5 mmol/L (3.5-5.1); Sodium 139 mmol/L (137-145); Total Bilirubin 0.5 mg/dL (0.2-1.3); Total Protein 6.5 g/dL (6.3-8.2)
--- NOTE | 2018-02-18 16:16 | XR ---
EXAMINATION TYPE: XR chest 2V DATE OF EXAM: 02/18/2018 COMPARISON: NONE HISTORY: Chest pain. TECHNIQUE: Frontal and lateral views of the chest are obtained. FINDINGS: There is no focal air space opacity, pleural effusion, or pneumothorax seen. The cardiac silhouette size is within normal limits. The osseous structures are intact. IMPRESSION: No acute cardiopulmonary process.
--- NOTE | 2018-02-18 17:02 | CT ---
EXAMINATION TYPE: CT chest angio for PE DATE OF EXAM: 02/18/2018 COMPARISON: None HISTORY: LUQ to left shoulder pain, now radiating to right side. CT DLP: 980.3 mGycm Automated exposure control for dose reduction was used. CONTRAST: CT Chest for pulmonary embolism performed with with IV Contrast, patient injected with 100 mL of Isov ue 370. There are 3-D post processed images. FINDINGS: The lungs are clear of infiltrate. There is no pleural effusion. There is no evidence of a pulmonary mass. Heart size is normal. There is no pericardial effusion. There are no hilar masses. There is no mediastinal adenopathy. There is normal contrast opacification of the pulmonary arteries. There are n o filling defects. Thoracic aorta shows no evidence of aneurysm or dissection. The bony thorax is int act. Upper abdominal soft tissues are unremarkable. IMPRESSION: Negative CT angiogram of the chest. No evidence of pulmonary embolism.
--- NOTE | 2018-02-18 17:19 | CT ---
EXAMINATION TYPE: CT abdomen pelvis w con DATE OF EXAM: 02/18/2018 COMPARISON: 04/30/2017 HISTORY: LUQ to left shoulder pain, now radiating to right side. CT DLP: 980.3 mGycm Automated exposure control for dose reduction was used. TECHNIQUE: Helical acquisition of images was performed from the lung bases through the pelvis. CONTRAST: Performed without Oral Contrast and with IV Contrast, patient injected with mL of Isovue 370. FINDINGS: Lung bases are clear. There is no pleural effusion. Heart size is normal. There is no pericardial eff usion. Liver spleen pancreas gallbladder appear normal. Bile ducts are not dilated. There is no adren al mass. Kidneys show satisfactory contrast opacification. There is no hydronephrosis. There is no re troperitoneal adenopathy. Bladder distends smoothly. There is no free fluid in the pelvis. Uterus is anteverted. I see no pelvic mass. Appendix is not definitely seen. There is no sign of appendicitis. There is no mesenteric edema. There is no evidence of free air. IMPRESSION: NEGATIVE CT SCAN OF THE ABDOMEN AND PELVIS. NO ADVERSE CHANGE COMPARED TO OLD EXAM. THERE ARE DILATED LEFT OVARIAN VEINS ON THE OLD CT SCAN THAT ARE APPEARING SMALLER ON TODAY'S EXAM.
[2018-02-18 18:10] VITALS: BP 103/68; PULSE 63; TEMP 98
== END 2018-02-18 18:09 | disposition home or self-care (01) ==
LOC: EC 13:16
DX: R10.11 Right upper quadrant pain (principal); M25.512 Pain in left shoulder; R07.9 Chest pain, unspecified; R79.1 Abnormal coagulation profile; F41.9 Anxiety disorder, unspecified; Z79.899 Other long term (current) drug therapy; Z88.0 Allergy status to penicillin
CPT/HCPCS: 36415; 93005; 85379; 80053; 82150; 83690; 84484; 85025; 81003; 81025; 71046; 71275; 74177; 99284; 96360; Q9967

== ENCOUNTER → 2018-04-03 | Outpatient (CLI) | payer OTHER ==
--- NOTE | 2018-04-03 10:01 | US ---
EXAMINATION TYPE: US venous doppler duplex LE LT DATE OF EXAM: 04/03/2018 9:42 AM COMPARISON: NONE CLINICAL HISTORY: R22.42 Localized swelling, mass and lump, left lower at site of superficial "spider veins". SIDE PERFORMED: Left TECHNIQUE: The lower extremity deep venous system is examined utilizing real time linear array sonog giovani with graded compression, doppler sonography and color-flow sonography. VESSELS IMAGED: Common Femoral Vein Deep Femoral Vein Greater Saphenous Vein * Femoral Vein Popliteal Vein Small Saphenous Vein * Proximal Calf Veins (* superficial vessels) Left Leg: Negative for DVT; Negative for SVT at patient's area of pain medial upper calf. Tech findings called to Missy at [employer] at end of US exam. IMPRESSION: 1. Left lower extremity negative for deep venous thrombosis. 2. No suspicious abnormality at the calf level of swelling
== END ==
LOC: RADUSWWP 09:16
PROVIDERS: ATTEND Family Medicine
DX: M79.605 Pain in left leg (principal); R22.42 Localized swelling, mass and lump, left lower limb

== ENCOUNTER 2018-07-20 15:40 | Emergency (ER) | payer OTHER ==
[2018-07-20 17:00] VITALS: RESP 18; TEMP 98.7
[2018-07-20 17:31] LABS: Basophils # (A) 0.1 k/uL (0-0.2); Basophils % (A) 1 %; Eosinophils # (A) 0.1 k/uL (0-0.7); Eosinophils % (A) 2 %; HCT 42.6 % (34.0-46.0); HGB 13.7 gm/dL (11.4-16.0); Lymphocytes # (A) 1.3 k/uL (1.0-4.8); Lymphocytes % (A) 23 %; MCH 29.7 pg (25.0-35.0); MCHC 32.3 g/dL (31.0-37.0); MCV 91.9 fL (80.0-100.0); Mean Platelet Volume 6.8; Monocytes # (A) 0.3 k/uL (0-1.0); Monocytes % (A) 5 %; Neutrophils # (A) 3.8 k/uL (1.3-7.7); Neutrophils % (A) 68 %; Platelet Count 268 k/uL (150-450); RBC 4.63 m/uL (3.80-5.40); RDW 12.8 % (11.5-15.5); WBC 5.6 k/uL (3.8-10.6)
[2018-07-20 17:40] LABS: ALT 20 U/L (9-52); AST 29 U/L (14-36); African American GFR (CKD) >90 (>60 ml/min/1.73 sqM); Albumin 4.7 g/dL (3.5-5.0); Alkaline Phosphatase 72 U/L (38-126); Amylase 44 U/L (30-110); Anion Gap 9 mmol/L; Blood Urea Nitrogen 10 mg/dL (7-17); Calcium 9.8 mg/dL (8.4-10.2); Carbon Dioxide 26 mmol/L (22-30); Chloride 107 mmol/L (98-107); Glucose 85 mg/dL (74-99); Lipase 108 U/L (23-300); Potassium 4.3 mmol/L (3.5-5.1); Sodium 142 mmol/L (137-145); Total Bilirubin 0.3 mg/dL (0.2-1.3); Total Protein 7.8 g/dL (6.3-8.2)
[2018-07-20 17:44] LABS: Appearance,Urine Cloudy (Clear); Bacteria,Urine Occasional /hpf; Bilirubin,Urine Negative (Negative); Blood,Urine Negative (Negative); Color,Urine Light Yellow; Glucose,Urine (UA) Negative (Negative); Ketones,Urine Trace (Negative); Leukocyte Esterase,Urine Small (Negative); Mucus,Urine Rare /hpf; Nitrite,Urine Negative (Negative); Protein,Urine Negative (Negative); RBC,Urine <1 /hpf (0-5); Specific Gravity,Urine 1.006 (1.001-1.035); Squamous Epithelial Cell,Urine 6 /hpf (0-4); Urobilinogen,Urine <2.0 mg/dL (<2.0); WBC,Urine 9 /hpf (0-5)
[2018-07-20] MEDS ORDERED: MAG HYDROX/AL HYDROX/SIMETH 30 ML, HYOSCYAMINE ELIXIR 10 ML, CIMETIDINE HCL 300 MG, LID... PO STA ×4 (18:30)
--- NOTE | 2018-07-20 18:38 | ED ---
Abdominal Pain HPI - General Chief Complaint: Abdominal Pain Stated Complaint: abd pain Time Seen by Provider: 07/20/18 18:02 Source: patient Mode of arrival: ambulatory - History of Present Illness Initial Comments: 32-year-old female patient presents to the emergency department today for evaluation of left upper quadrant abdominal pain that radiates to the left shoulder. Patient states she's had this pain since early this morning. She describes the pain as a sharp stabbing pain that comes and goes. She states she has had intermittent nausea with this but no vomiting. Denies any constipation or diarrhea. States she is passing gas without difficulty. She denies fever, chills, hematuria, dysuria, urinary frequency, urinary urgency. Patient states that she has had this pain before and has had workup of her gallbladder including ultrasound, MRI, and HIDA scan without any findings. Patient was seen in February here for similar symptoms and did have CT angiography of the chest and CT abdomen and pelvis with contrast which showed no acute abnormalities. Patient states that she does have improvement of symptoms when she follows a strict ketogenic diet. Patient states when she adds other things and she then has return of symptoms. Denies any chance of , states her last period was 07/13/2018. Denies any history of abdominal surgery. Patient denies any recent rash, shortness breath, chest pain, back pain, numbness, tingling, dizziness, weakness, headache, visual changes, or any other complaints. - Related Data Home Medications Medication Instructions Recorded Confirmed Citalopram Hydrobromide [CeleXA] 40 mg PO HS 02/18/18 02/18/18 Magnesium 200 mg PO HS 02/18/18 02/18/18 Previous Rx's Medication Instructions Recorded Ranitidine HCl [Zantac] 150 mg PO HS #30 tab 07/20/18 Allergies Allergy/AdvReac Type Severity Reaction Status Date / Time amoxicillin [From Augmentin] Allergy Rash/Hives Verified 07/20/18 17:01 clavulanic acid Allergy Rash/Hives Verified 07/20/18 17:01 [From Augmentin] Review of Systems ROS Statement: Those systems with pertinent positive or pertinent negative responses have been documented in the HPI. ROS Other: All systems not noted in ROS Statement are negative. Past Medical History Past Medical History: No Reported History History of Any Multi-Drug Resistant Organisms: None Reported Past Surgical History: Adenoidectomy, Ear Surgery, Tonsillectomy Additional Past Surgical History / Comment(s): Tubes in ears as a child Past Anesthesia/Blood Transfusion Reactions: No Reported Reaction Past Psychological History: Anxiety Smoking Status: Never smoker Past Alcohol Use History: None Reported Past Drug Use History: None Reported - Past Family History Sister(s) Additional Family Medical History / Comment(s): anxiety Mother Additional Family Medical History / Comment(s): Brain Anerysms General Exam General appearance: alert, in no apparent distress, other (Physical well- developed, well-nourished adult female patient in no acute distress. Vital signs upon presentation are temperature 98.7F, pulse 74, respirations 18, blood pressure 122/73, pulse ox 100% on room air.) Eye exam: Present: normal appearance, PERRL, EOMI. Absent: scleral icterus, conjunctival injection, periorbital swelling ENT exam: Present: normal exam, normal oropharynx, mucous membranes moist Respiratory exam: Present: normal lung sounds bilaterally. Absent: respiratory distress, wheezes, rales, rhonchi, stridor Cardiovascular Exam: Present: regular rate, normal rhythm, normal heart sounds. Absent: systolic murmur, diastolic murmur, rubs, gallop, clicks GI/Abdominal exam: Present: soft, tenderness (Left upper quadrant tenderness), normal bowel sounds. Absent: distended, guarding, rebound, rigid Back exam: Absent: CVA tenderness (R), CVA tenderness (L) Neurological exam: Present: alert, oriented X3, CN II-XII intact Psychiatric exam: Present: normal affect, normal mood Skin exam: Present: warm, dry, intact, normal color. Absent: rash Course Vital Signs 07/20/18 07/20/18 16:58 19:00 Temperature 98.7 F 98.7 F Pulse Rate 74 67 Respiratory 18 18 Rate Blood Pressure 122/73 108/62 O2 Sat by Pulse 100 100 Oximetry Medical Decision Making - Medical Decision Making 32-year-old female patient presented to the emergency department today for evaluation of left upper quadrant pain radiating into the left shoulder. Physical examination did reveal some left upper quadrant tenderness. No CVA tenderness. Patient's vital signs are stable with no fever. Labs reviewed and revealed normal white blood cell, urinalysis showed small leukocyte esterase and 9 white blood cells, there was squamous epithelial cells, this will be sent for culture. I did discuss findings and results with the patient. We did discuss possibility of repeating her computed tomography scan of the abdomen and pelvis. We did discuss risks of receiving excess radiation. We also discussed treating for possible peptic ulcer disease or gastritis with Zantac. Patient decided to receive the medication as a trial and withholding computed tomography scan at this time. She will be discharged home at this time to follow-up with her primary care physician for recheck in 1-2 days. She is urged to discuss possibility of referral for upper GI endoscopy. Return parameters were discussed in detail. She is to maintain low threshold for return. She verbalizes understanding and agrees this plan. - Lab Data Result diagrams: 07/20/18 17:20 07/20/18 17:20 Lab Results 07/20/18 07/20/18 07/20/18 Range/Units 17:20 17:20 17:25 WBC 5.6 (3.8-10.6) k/uL RBC 4.63 (3.80-5.40) m/uL Hgb 13.7 (11.4-16.0) gm/dL Hct 42.6 (34.0-46.0) % MCV 91.9 (80.0-100.0) fL MCH 29.7 (25.0-35.0) pg MCHC 32.3 (31.0-37.0) g/dL RDW 12.8 (11.5-15.5) % Plt Count 268 (150-450) k/uL Neutrophils % 68 % Lymphocytes % 23 % Monocytes % 5 % Eosinophils % 2 % Basophils % 1 % Neutrophils # 3.8 (1.3-7.7) k/uL Lymphocytes # 1.3 (1.0-4.8) k/uL Monocytes # 0.3 (0-1.0) k/uL Eosinophils # 0.1 (0-0.7) k/uL Basophils # 0.1 (0-0.2) k/uL Sodium 142 (137-145) mmol/L Potassium 4.3 (3.5-5.1) mmol/L Chloride 107 (98-107) mmol/L Carbon Dioxide 26 (22-30) mmol/L Anion Gap 9 mmol/L BUN 10 (7-17) mg/dL Creatinine 0.58 (0.52-1.04) mg/dL Est GFR (CKD-EPI)AfAm >90 (>60 ml/min/1.73 sqM) Est GFR (CKD-EPI)NonAf >90 (>60 ml/min/1.73 sqM) Glucose 85 (74-99) mg/dL Calcium 9.8 (8.4-10.2) mg/dL Total Bilirubin 0.3 (0.2-1.3) mg/dL AST 29 (14-36) U/L ALT 20 (9-52) U/L Alkaline Phosphatase 72 (38-126) U/L Total Protein 7.8 (6.3-8.2) g/dL Albumin 4.7 (3.5-5.0) g/dL Amylase 44 (30-110) U/L Lipase 108 (23-300) U/L Urine Color Light Yellow Urine Appearance Cloudy H (Clear) Urine pH 7.0 (5.0-8.0) Ur Specific [place] 1.006 (1.001-1.035) Urine Protein Negative (Negative) Urine Glucose (UA) Negative (Negative) Urine Ketones Trace H (Negative) Urine Blood Negative (Negative) Urine Nitrite Negative (Negative) Urine Bilirubin Negative (Negative) Urine Urobilinogen <2.0 (<2.0) mg/dL Ur Leukocyte Esterase Small H (Negative) Urine RBC <1 (0-5) /hpf Urine WBC 9 H (0-5) /hpf Ur Squamous Epith Cells 6 H (0-4) /hpf Urine Bacteria Occasional H (None) /hpf Urine Mucus Rare H (None) /hpf Urine HCG, Qual (Not Detectd) 07/20/18 Range/Units 17:25 WBC (3.8-10.6) k/uL RBC (3.80-5.40) m/uL Hgb (11.4-16.0) gm/dL Hct (34.0-46.0) % MCV (80.0-100.0) fL MCH (25.0-35.0) pg MCHC (31.0-37.0) g/dL RDW (11.5-15.5) % Plt Count (150-450) k/uL Neutrophils % % Lymphocytes % % Monocytes % % Eosinophils % % Basophils % % Neutrophils # (1.3-7.7) k/uL Lymphocytes # (1.0-4.8) k/uL Monocytes # (0-1.0) k/uL Eosinophils # (0-0.7) k/uL Basophils # (0-0.2) k/uL Sodium (137-145) mmol/L Potassium (3.5-5.1) mmol/L Chloride (98-107) mmol/L Carbon Dioxide (22-30) mmol/L Anion Gap mmol/L BUN (7-17) mg/dL Creatinine (0.52-1.04) mg/dL Est GFR (CKD-EPI)AfAm (>60 ml/min/1.73 sqM) Est GFR (CKD-EPI)NonAf (>60 ml/min/1.73 sqM) Glucose (74-99) mg/dL Calcium (8.4-10.2) mg/dL Total Bilirubin (0.2-1.3) mg/dL AST (14-36) U/L ALT (9-52) U/L Alkaline Phosphatase (38-126) U/L Total Protein (6.3-8.2) g/dL Albumin (3.5-5.0) g/dL Amylase (30-110) U/L Lipase (23-300) U/L Urine Color Urine Appearance (Clear) Urine pH (5.0-8.0) Ur Specific [place] (1.001-1.035) Urine Protein (Negative) Urine Glucose (UA) (Negative) Urine Ketones (Negative) Urine Blood (Negative) Urine Nitrite (Negative) Urine Bilirubin (Negative) Urine Urobilinogen (<2.0) mg/dL Ur Leukocyte Esterase (Negative) Urine RBC (0-5) /hpf Urine WBC (0-5) /hpf Ur Squamous Epith Cells (0-4) /hpf Urine Bacteria (None) /hpf Urine Mucus (None) /hpf Urine HCG, Qual Not Detected (Not Detectd) Disposition Clinical Impression: Abdominal pain Disposition: HOME SELF-CARE Condition: Good Instructions (If sedation given, give patient instructions): Gastritis (ED), Abdominal Pain (ED) Additional Instructions: Take medications as directed. Follow-up with your primary care physician discuss possibility of referral for upper GI endoscopy. Return to the emergency department immediately for any new, worsening, or concerning symptoms. Prescriptions: Ranitidine HCl [Zantac] 150 mg PO HS #30 tab Is patient prescribed a controlled substance at d/c from ED?: No Referrals: Oly Cuellar MD [Primary Care Provider] - 1-2 days Time of Disposition: 18:37
[2018-07-20] MEDS ORDERED: LIDOCAINE VISCOUS 2% PO STA ×3 (18:48)
[2018-07-20] MEDS ORDERED: MAG HYDROX PO STA ×3 (18:48)
[2018-07-20] MEDS ORDERED: CIMETIDINE HCL PO STA ×3 (18:48)
[2018-07-20] MEDS ORDERED: SIMETH PO STA ×3 (18:48)
[2018-07-20] MEDS ORDERED: AL HYDROX PO STA ×3 (18:48)
[2018-07-20 19:04] VITALS: BP 108/62; PULSE 67
== END 2018-07-20 19:04 | disposition home or self-care (01) ==
LOC: EC 15:40
DX: R10.12 Left upper quadrant pain (principal); R82.998 Other abnormal findings in urine; M25.512 Pain in left shoulder; R11.0 Nausea; F41.9 Anxiety disorder, unspecified; Z88.0 Allergy status to penicillin; Z79.899 Other long term (current) drug therapy
CPT/HCPCS: 36415; 80053; 81001; 81025; 82150; 83690; 85025; 87086; 99284

== ENCOUNTER → 2019-01-19 | Outpatient (CLI) | payer OTHER | END | disposition home or self-care (01) | LOC: LABWHC1 10:19 | PROVIDERS: ATTEND Internal Medicine Cardiovascular Disease | DX: R00.2 Palpitations (principal) | CPT/HCPCS: 36415; 84443 ==